=== PATIENT | female | born 1935 | race Caucasian/White ===

== ENCOUNTER → 2022-01-21 14:07 | Outpatient (BNVA) | payer MEDICARE, BC, SELFPAY | PROVIDERS: PCP Internal Medicine; Visit Provider Nurse Practitioner Family | DX: G20 Parkinson's disease (principal); M79.605 Pain in left leg; R29.6 Repeated falls | CPT/HCPCS: 99202 ==

== ENCOUNTER → 2022-05-02 14:14 | Outpatient (BNVA) | payer MEDICARE, BC, SELFPAY | PROVIDERS: PCP Internal Medicine; Visit Provider Nurse Practitioner Family | DX: G20 Parkinson's disease (principal); Z79.899 Other long term (current) drug therapy; Z91.81 History of falling | CPT/HCPCS: 99212 ==

== ENCOUNTER → 2022-08-24 14:32 | Outpatient (BNVA) | payer MEDICARE, BC, SELFPAY | PROVIDERS: PCP Internal Medicine; Visit Provider Nurse Practitioner Family | DX: G20 Parkinson's disease (principal); G47.62 Sleep related leg cramps; R13.10 Dysphagia, unspecified | CPT/HCPCS: 99212 ==

== ENCOUNTER 2023-02-14 14:46 | Outpatient (AMB) | payer MEDICARE, BC, SELFPAY ==
--- NOTE | 2023-02-14 14:57 | MHC.OFFVIS ---
Intake Vital Signs 02/14/23 14:59 BP 124/68 Blood Pressure Location Rt brachial Position Sitting Pulse 96 Pulse Source Pulse Oximeter Pulse Oximetry (%) 97 Oxygen Delivery Method Room Air Intake Visit Reasons: 6m follow up Parkinson-Confirmed Intake Note: Pt presents today for fup , had a fall Monday night. Pt did hit her head , she went to ED and vomited , all test came back negative . Allergies No Known Allergies Allergy (Verified 02/14/23 15:03) PFSH Medical History (Updated 02/14/23 @ 15:04 by Dayan Gamboa) Cataract Family History Father Diabetes Stroke Coronary aneurysm Mother No problems noted. Sister Macular changes, congenital Polio Pemphigus Shingles Social History Alcohol intake: former Patient Tobacco Use Status: Never used Tobacco Coding
[2023-02-14 14:59] VITALS: BP 124/68; PULSE 96; O2SAT 97
--- NOTE | 2023-02-14 15:35 | A.OFFVIS_ITS ---
Intake Vital Signs 02/14/23 14:59 BP 124/68 Blood Pressure Location Rt brachial Position Sitting Pulse 96 Pulse Source Pulse Oximeter Pulse Oximetry (%) 97 Oxygen Delivery Method Room Air Intake Visit Reasons: 6m follow up Parkinson-Confirmed Intake Note: Pt presents today for fup , had a fall Monday night. Pt did hit her head , she went to ED and vomited , all test came back negative . Allergies No Known Allergies Allergy (Verified 02/14/23 15:03) Medication List - Last Reconciled 02/14/23 by VIVIENNE Chadwick azelastine intranasal carbidopa-levodopa 25-100 mg 1 tab PO TID 30 days carbidopa-levodopa 25-100 mg ER 1 tab PO BEDTIME 28 days cyclosporine 0.05% (Restasis MultiDose) 0 drps ophthalmic (eye) cyclosporine 0.05% (Restasis) drps ophthalmic (eye) ONCE omeprazole 20 mg PO DAILY sertraline 25 mg PO DAILY trospium 20 mg PO DAILY PRN HPI HPI Comments History of Present Illness Details 87-yr-old female presents for f/u visit, accompanied by family. Pt's current PD medication regimen: CD-LD 1 tab tid and CD-LD ER 25-100mg 1 tab qhs Do medication effects last between doses: No ADL's: Needs assist. Swallowing: She is still having some issues w/ larger pills. Her voice was better but then it worsened after she stopped during her exercises. Still working w/ FISH STRINGER ASSEMBLER who thinks that she has had a slight regression with swallowing and her speech. Cough: Some Drooling: Some Orthostatic lightheadedness: None Constipation: No, more prone to diarrhea but this is a bit better. Freezing: None Stiffness: Legs feel stiff and back can feel sore. She still has leg cramps.. Tremor: None Falls: Last week- slid out of her recliner- family thinks this is d/t she was using a larger pillow to support her back- they plan to try a small lumbar pillow. Hallucinations: None Memory: Stable Sleep: Sleeps ok. Feels tired a lot. Exercise: Working w/ PT. [facility], [facility] Medical History (Updated 02/14/23 @ 15:04 by Dayan Gamboa) Cataract Family History Father Diabetes Stroke Coronary aneurysm Mother No problems noted. Sister Macular changes, congenital Polio Pemphigus Shingles Social History Alcohol intake: former Patient Tobacco Use Status: Never used Tobacco Review of Systems Const All systems reviewed & are unremarkable except as noted in HPI and below Physical Exam Vital Signs: Last Vital Signs Pulse 96 02/14/23 14:59 BP 124/68 02/14/23 14:59 Pulse Ox 97 02/14/23 14:59 Oxygen Delivery Method Room Air 02/14/23 14:59 Const General: cooperative and no acute distress Resp Effort & Inspection: normal respiratory effort and able to speak in complete sentences Neuro Other: Expression: Decreased expression and blink Voice: Soft voice Tremor: No rest tremor today Tone: Mild BUE tone Dyskinesia: None FFM: Mild bradykinesia Foot taps: Mild bradykinesia Gait: sitting upright in w/c. Psych: Pleasant affect General: patient oriented x3 Assessment & Plan Assessment & Plan (1) Parkinson's disease: Code(s): G20 - Parkinson's disease (2) Dysphagia: Code(s): R13.10 - Dysphagia, unspecified (3) Nocturnal leg cramps: Code(s): G47.62 - Sleep related leg cramps (4) Falls: Code(s): W19.XXXA - Unspecified fall, initial encounter Plan Increase Carbidopa-Levodopa 25-100mg from 1 tab Tid to 1.5 tabs at 7am, 1 tab at 11am, 1.5 tabs 4pm. Continue CD-LD Er 25-100mg qhs- in hopes this alleviates nocturnal leg cramps. Continue FISH STRINGER ASSEMBLER, PT and OT exercises. Concur w/ adjusting recliner pillows Monitor REM sleep behaviors- consider Melatonin and/or low-dose Clonazepam. f/u in 6 months or sooner prn new/worsening s/s. Medications: Changed From carbidopa-levodopa 25-100 mg at 7am, 11am, and 4pm, take before meals 1 tab PO TID 30 days 90 tabs 6RF To carbidopa-levodopa 25-100 mg 1.5 tabs at 7am, 1 tab at 11am, 1.5 tabs 4pm orally. take before meals 30 days 120 tabs 6RF Coding Level of Care Code Est Pt Level 4 (16169) Diagnoses Parkinson's disease G20 Dysphagia R13.10 Nocturnal leg cramps G47.62 Falls W19.XXXA
== END 2023-02-14 15:56 | disposition home or self-care (01) ==
PROVIDERS: Visit Provider Nurse Practitioner Family
DX: G20 Parkinson's disease (principal); R13.10 Dysphagia, unspecified; G47.62 Sleep related leg cramps; R29.6 Repeated falls
CPT/HCPCS: 99214

== ENCOUNTER → 2023-02-14 14:46 | Outpatient (BNVA) | payer MEDICARE, BC, SELFPAY | PROVIDERS: Visit Provider Nurse Practitioner Family | DX: G20 Parkinson's disease (principal); R13.10 Dysphagia, unspecified; G47.62 Sleep related leg cramps; R29.6 Repeated falls | CPT/HCPCS: 99212 ==

== ENCOUNTER 2023-08-15 14:35 | Outpatient (AMB) | payer MEDICARE, BC, SELFPAY ==
--- NOTE | 2023-08-15 14:57 | A.OFFVIS_ITS ---
Intake Vital Signs 08/15/23 15:00 Height 5 ft 1 in BP 122/80 Blood Pressure Location Rt brachial Position Sitting Pulse 82 Pulse Source Pulse Oximeter Pulse Oximetry (%) 98 Oxygen Delivery Method Room Air Intake Visit Reasons: 5m follow up Parkinson-CONF Intake Note: Patient presents for 5 month follow up.my eyes are watering and sometimes dry. Allergies No Known Allergies Allergy (Verified 08/15/23 15:03) Medication List - Last Reconciled 08/15/23 by VIVIENNE Chadwick azelastine intranasal carbidopa-levodopa 25-100 mg 1.5 tabs PO TID 28 days carbidopa-levodopa 25-100 mg ER 1 tab PO BEDTIME 28 days cyclosporine 0.05% (Restasis MultiDose) 0 drps ophthalmic (eye) cyclosporine 0.05% (Restasis) drps ophthalmic (eye) ONCE lifitegrast 5% (Xiidra) drps ophthalmic (eye) omeprazole 20 mg PO DAILY sertraline 25 mg PO DAILY trospium 20 mg PO DAILY PRN HPI HPI Comments History of Present Illness Details 87-yr-old female presents for f/u visit, accompanied by her niece Karina. Pt denies any significant interval medical history changes. Due to a pharmacy issue, pt never increased the CD-LD to 1.5-1-1.5 w/ CDLD ER qhs. Pt's current PD medication regimen: CD-LD 1 tab tid and CD-LD ER 25-100mg 1 tab qhs Do medication effects last between doses: No ADL's: Needs assist. Swallowing: Having some more issues. DATA WAREHOUSE MANAGER is considering doing a f/u MBS Eyes: States that one eye is watery and the other is dry- has been started on drops. Cough: Some Drooling: Some Orthostatic lightheadedness: None Constipation: Having constipation vs diarrhea- but PCP is helping to manage this. Pt is scheduled for GI consult in August. Freezing: None Stiffness: Legs feel stiff and back can feel sore. She still has leg cramps. Still is slow to stand. Tremor: None Falls: She did have a near fall- needed to be lowered to the floor. She did have a fall- as she was reaching for something on the ground. Gait: Can be slow to stand. Can walk w/ a walker and contact guard. Hallucinations: None Memory: Stable Sleep: Sleeps ok. No parasomnias.. Exercise: Working w/ PT. [facility] Medical History (Updated 09/03/23 @ 19:43 by VIVIENNE Chadwick) Parkinson's disease Cataract Family History Father Diabetes Stroke Coronary aneurysm Mother No problems noted. Sister Macular changes, congenital Polio Pemphigus Shingles Social History Alcohol intake: former Patient Tobacco Use Status: Never used Tobacco Review of Systems Const All systems reviewed & are unremarkable except as noted in HPI and below Physical Exam Vital Signs: Last Vital Signs Pulse 82 08/15/23 15:00 BP 122/80 08/15/23 15:00 Pulse Ox 98 08/15/23 15:00 Oxygen Delivery Method Room Air 08/15/23 15:00 Const General: cooperative and no acute distress Resp Effort & Inspection: normal respiratory effort and able to speak in complete sentences Neuro Other: General: patient oriented x3 Expression: Decreased expression and blink Voice: Hypophia Tremor: No tremor today Tone: Mild BUE tone Dyskinesia: None FFM: Bradykinesia, L > R Foot taps: Bradykinesia, L > R Gait: sitting upright in w/c. Psych: Pleasant affect Assessment & Plan Assessment & Plan (1) Parkinson's disease without dyskinesia: Code(s): G20.A1 - Parkinson's disease without dyskinesia, without mention of fluctuations (2) Dysphagia: Code(s): R13.10 - Dysphagia, unspecified (3) Nocturnal leg cramps: Code(s): G47.62 - Sleep related leg cramps Plan Increase Carbidopa-Levodopa 25-100mg from 1 tab Tid to 1.5 tabs TID at 7am, 11am, 4pm. Continue CD-LD Er 25-100mg qhs- in hopes this alleviates nocturnal leg cramps. Continue DATA WAREHOUSE MANAGER, PT and OT exercises. GI consult as scheduled. Monitor REM sleep behaviors- consider Melatonin and/or low-dose Clonazepam. ? f/u in 6 months or sooner prn new/worsening s/s. Medications: Changed From carbidopa-levodopa 25-100 mg at 7am, 11am, 4pm 1.5 tabs PO TID 28 days 126 tabs 6RF To carbidopa-levodopa 25-100 mg at 7am, 11am, 4pm 1.5 tabs PO TID 126 tabs 6RF 28 days From carbidopa-levodopa 25-100 mg 1.5 tabs at 7am, 1 tab at 11am, 1.5 tabs 4pm orally. take before meals 30 days 120 tabs 6RF To carbidopa-levodopa 25-100 mg at 7am, 11am, 4pm 1.5 tabs PO TID 126 tabs 6RF 28 days From carbidopa-levodopa 25-100 mg at 7am, 11am, 4pm 1.5 tabs PO TID 28 days 126 tabs 6RF To carbidopa-levodopa 25-100 mg at 7am, 11am, 4pm 1.5 tabs PO TID 126 tabs 6RF 28 days Coding Level of Care Code Est Pt Level 4 (29013) Diagnoses Parkinson's disease without dyskinesia G20.A1 Dysphagia R13.10 Nocturnal leg cramps G47.62
[2023-08-15 15:00] VITALS: BP 122/80; PULSE 82; O2SAT 98
== END 2023-08-15 16:00 | disposition home or self-care (01) ==
LOC: HO.HSMS 14:35
PROVIDERS: PCP Internal Medicine; Visit Provider Nurse Practitioner Family
DX: G20.A1 Parkinson's disease without dyskinesia, without mention of fluctuations (principal); R13.10 Dysphagia, unspecified; G47.62 Sleep related leg cramps
CPT/HCPCS: 99214

== ENCOUNTER → 2023-08-15 14:35 | Outpatient (BNVA) | payer MEDICARE, BC, SELFPAY | PROVIDERS: PCP Internal Medicine; Visit Provider Nurse Practitioner Family | DX: G20.A1 Parkinson's disease without dyskinesia, without mention of fluctuations (principal); G47.62 Sleep related leg cramps; R13.10 Dysphagia, unspecified | CPT/HCPCS: 99212 ==

== ENCOUNTER 2024-09-16 10:44 | Outpatient (AMB) | payer MEDICARE, BC, SELFPAY ==
--- NOTE | 2024-09-16 11:01 | A.OFFVIS_ITS ---
Vital Signs 09/16/24 11:06 BP 130/70 Blood Pressure Location Lt brachial Position Sitting Pulse 76 Pulse Source Pulse Oximeter Pulse Oximetry (%) 96 Oxygen Delivery Method Room Air Intake Visit Reasons: 6 mo f/u Intake Note: Patient presents for med adjustment carbidopa-levodopa. Barrel Rib Matting Machine Operator Required: No Accompanied by: Self / Same As Patient Allergies No Known Allergies Allergy (Verified 08/15/23 15:03) Medication List - Last Reconciled 09/16/24 by VIVIENNE Chadwick azelastine intranasal carbidopa-levodopa 25-100 mg 2 tabs PO TID 28 days carbidopa-levodopa 50-200 mg ER 1 tab PO BEDTIME 28 days cyclosporine 0.05% (Restasis MultiDose) 0 drps ophthalmic (eye) cyclosporine 0.05% (Restasis) drps ophthalmic (eye) ONCE lifitegrast 5% (Xiidra) drps ophthalmic (eye) omeprazole 20 mg PO DAILY sertraline 25 mg PO DAILY trospium 20 mg PO DAILY PRN HPI Comments Details: 88-yr-old female presents for f/u visit, accompanied by her niece Karina. Pt is currently staying at [facility] for rehab s/p a mechanical fall approx 1 month ago- in which she sustained mx rib fx's- pt was being assisted w/ toileting- while standing, lost her balance and fell into the wall. Was admitted to [facility]- tx'd conservatively- was on oxycodone w/ APAP/Ibuprofen. Pt continues on prn analgesics- pt thinks she is still taking prn oxycodone- the niece thought she was not any longer.. Pt's niece is hoping to bring her back to her [facility], [place], however we will need to higher primary duty aids.. She is still having back and rib pain- though niece feels it is improving. Pt's niece believes she did increase the CD-LD after the last visit. However, knees feels that patient's PD symptoms have progressed since this recent fall. Pt's current PD medication regimen: CD-LD 1.5 tab tid and CD-LD ER 25-100mg 1 tab qhs Do medication effects last between doses: No ADL's: Needs assist. Swallowing: States her swallowing has be . Had f/u MBS- she was noted to be pocketing food- was advised to chew more thoroughly before swallowing, eat more slowly, avoid straws. Has needed to have dental work d/t cavities likely r/t pocketing of foood. In the rehab- she is now eating al meals in the dining room. Eyes: Continues to have dry eye- her sorter packer did a procedure to improve dry eyes. She is on prescription dry eyes. Cough: Occasional strange cough not r/t eating- family attributes to allergies. Drooling: Increased since this recent fall. Orthostatic lightheadedness: None Constipation: Denies constipation, but is having loose stools- has seen GI who felt her bowel regimen did not need to be adjusted. Freezing: Some- then can start to list to the side. Stiffness: Seems more rigid. Legs can be sore nad achy- walking more w/ PT. Still has leg cramps- but states bananas help this. States she used toe at a banana daily at the [facility] but not at rehab. Tremor: None Falls: as above Gait: Can be slow to stand. Can walk w/ a walker and contact guard and w/c following. Hallucinations: Pt denies. Niece states that while at [facility]- slipped out of bed, as she thought her was calling for her. Had another episode where pt thought there was 2-3 roommates but she was in a private room. Memory: Sometimes mis-speaks but tehn corrects herself. Sleep: Sleeps ok. No parasomnias. Exercise: Working w/ PT. [facility] Medical History (Updated 09/16/24 @ 12:13 by VIVIENNE Chadwick) Parkinson's disease Cataract Family History Father Diabetes Stroke Coronary aneurysm Mother No problems noted. Sister Macular changes, congenital Polio Pemphigus Shingles Social History Alcohol intake: former Patient Tobacco Use Status: Never used Tobacco Physical Exam Vital Signs: Last Vital Signs Pulse 76 09/16/24 11:06 BP 130/70 09/16/24 11:06 Pulse Ox 96 09/16/24 11:06 Oxygen Delivery Method Room Air 04/28/25 11:06 Const General: cooperative and no acute distress Resp Effort & Inspection: normal respiratory effort and able to speak in complete sentences Neuro Other: General: patient oriented x3 Expression: Marked decreased expression and blink Voice: Hypophia Drooling- mild drooling Tremor: No tremor today Tone: Moderate BUE, R > L, tone Dyskinesia: None FFM: More pronounced bradykinesia- more difficulty completing movements today Foot taps: Marked bradykinesia- difficulty initiating/completing tasks Gait: sitting upright in w/c, more stooped in shoulders. Psych: Pleasant affect Assessment & Plan Assessment & Plan (1) Parkinson's disease without dyskinesia: Code(s): G20.A1 - Parkinson's disease without dyskinesia, without mention of fluctuations Category: Medical Qualifiers: Fluctuating manifestations: without fluctuating manifestations Qualified Code(s): G20.A1 - Parkinson's disease without dyskinesia, without ment ion of fluctuations (2) Dysphagia: Code(s): R13.10 - Dysphagia, unspecified Category: Medical Qualifiers: Dysphagia type: oral phase Qualified Code(s): R13.11 - Dysphagia, oral phase (3) Nocturnal leg cramps: Code(s): G47.62 - Sleep related leg cramps Category: Medical Plan Will optimize CD-LD dosing in hopes of reducing bradykinesia, rigidity, and nocturnal leg cramps. Advised of possible side effects to monitor for with increasing levodopa dose, such as orthostatic hypotension, lightheadedness, hallucinations, dyskinesias, GI upset. Increase Carbidopa-Levodopa 25-100mg from 1.5 tabs TID at 7am, 11am, 4pm to 2 tabs TID- at least 30-45 minutes before meals. Increase CD-LD Er 25-100mg from 1 tab qhs to CD-LD ER 50-200mg 1 tab daily at bedtime. * Orders updated today, however we will send orders to [facility] once patient plans to return back to assisted living facility. Niece will let us know. Continue safe swallowing strategies- concur with eating all meals in the dining room, eating slowly, avoiding straws. Continue bowel regimen- per GI. Continue PT. Monitor REM sleep behaviors- consider Melatonin and/or low-dose Clonazepam. ? f/u in 4 months with myself or Dr. Parrish- or sooner prn new/worsening s/s. Medications: New carbidopa-levodopa 50-200 mg ER at 8pm (continue carbidopa levodopa IR dose TID) 1 tab PO BEDTIME 28 days 28 tabs 6RF Changed From carbidopa-levodopa 25-100 mg at 7am, 11am, 4pm. (Continue CD-LD ER 25-100mg q 8pm) 1.5 tabs PO TID 28 days 126 tabs 6RF To carbidopa-levodopa 25-100 mg at 7am, 11am, 4pm. (Continue CD-LD ER dose q 8pm) 2 tabs PO TID 28 days 168 tabs 6RF Discontinued carbidopa-levodopa 25-100 mg ER Discontinued Reason: Doctor's Order 1 tab PO BEDTIME 28 days 28 tabs 6RF Coding Level of Care Code Est Pt Level 4 (02314) Complex EM visit Add On G2211 Diagnoses Parkinson's disease without dyskinesia or fluctuating manifestations G20.A1 Fluctuating manifestations: without fluctuating manifestations Oral phase dysphagia R13.11 Dysphagia type: oral phase Nocturnal leg cramps G47.62
[2024-09-16 11:06] VITALS: BP 130/70; PULSE 76; O2SAT 96
--- OUTSIDE RECORDS SUMMARY | 2024-09-16 12:46 | XMS_ITS ---
Author Organization [facility] Address [address] [place] [address] Care Team Providers Care Structural Mill Supervisor Name Role Phone Lara Leahy MD Primary Care Provider Unavailab JOSAFAT Smith Unavailable Migration, Provider Unavailable Unavailable [facility]IS[facility] Encounter Medications Medication SIG (Take, Route, Frequency, Duration) Notes Start Date End Date Status Claritin 10 MG 1 tab(s) orally once a day Active BETAMETHASONE *Please review for potential replacement for e-prescription and drug interaction check* Active Biotin 300 MCG 1 TAB(S) ORALLY ONCE A DAY for 30 DAY(S) *Please review and pick correct strength-formulat ion from Medispan options. If intended option is not shown, discontinue and re-order from Quick Search* Active Sertraline HCl 100 MG 1 tab(s) orally once a day for 30 day(s) Active TRIAMCINOLONE ACETONIDE 40 MG/ML DIRECTED INTRAMUSCULARLY ONCE for 1 DOSE(S) *Please review for potential replacement for e-prescription and drug interaction check* Active B-12 1000 MCG 1 tab(s) orally once a day for 30 day(s) Active Calcium 300/150 *Please review and pick correct strength-formulat ion from Medispan options. If intended option is not shown, discontinue and re-order from Quick Search* Active Trospium Chloride 20 MG 1 tab(s) orally 2 times a day for 30 day(s) 02/21/2020 Active Encounters Encounter Location Date Provider Diagnosis [facility] [address] [place] [address] 07/27/2024 Provider Migration Plan Of Treatment No Information Progress Notes * Alexa JACKSON JDOB:1935 (88 yo F)Acc No.[id number]:07/27/2024 Patient:Alexa JOHNSON Provider:?Provider Migration :1935???Age:88 Y???Sex:Female D ate:07/27/2024 Address:[address] [place] [address], [id number] Pcp:Lara Leahy MD Subjective: * Chief Complaints: * ???1. [facility] To [facility] Con version Encounter. * Medical History:? * Medications:?Taking Trospium Chloride 20 MG Tablet 1 tab(s) orally 2 times a day , Taking B-12 1000 MCG Tablet 1 tab(s) orally once a day , Taking Calcium 300/150 , Notes to Pharmacist: *Please review and pick correct strength-formulation from Clickatellan options. If intended option is not shown, discontinue and re-order from Quick Search*, Taking Sertraline HCl 100 MG Tablet 1 tab(s) orally once a day , Taking TRIAMCINOLONE ACETONIDE 40 MG/ML SUSPENSION DIRECTED INTRAMUSCULARLY ONCE , Notes to Pharmacist: *Please review for potential replacement for e-prescription and drug interaction check*, Taking BETAMETHASONE , Notes to Pharmacist: *Please review for potential replacement for e-prescription and drug interaction check*, Taking Biotin 300 MCG TABLET 1 TAB(S) ORALLY ONCE A DAY , Notes to Pharmacist: *Please review and pick correct strength-formulation from Clickatellan options. If intended option is not shown, discontinue and re-order from Quick Search*, Taking Claritin 10 MG Tablet 1 tab(s) orally once a day Objective: * Vitals:? Assessment: Plan: * Treatment: * Images: Billing Information: * Visit Code:? * Procedure Codes:? * Electronic signature of Prov ider Migration on 09/16/2024 at 12:45 PM EDT Sign off status: Pending * Provider:?Provider Migration Date:?07/27 Generated for Maddie montiel/Marcus/Morena on:?09/16/2024 12:45 PM EDT
--- OUTSIDE RECORDS SUMMARY | 2024-09-16 12:46 | XMS_ITS | Patient Health Record ---
Author Organization [facility] Address [address] [place] [address] Care Team Providers Care Machinery Dismantler Name Role Phone Lara Leahy MD Primary Care Provider Unavailab JOSAFAT Smith Unavailable Migration, Provider Unavailable Unavailable Reason For Referral No Information Medications Medication SIG (Take, Route, Frequency, Duration) Notes Start Date End Date Status Claritin 10 MG 1 tab(s) orally once a day Active BETAMETHASONE *Please review for potential replacement for e-prescription and drug interaction check* Active Biotin 300 MCG 1 TAB(S) ORALLY ONCE A DAY for 30 DAY(S) *Please review and pick correct strength-formulat ion from PublicRelayan options. If intended option is not shown, [...] review and pick correct strength-formulat ion from PublicRelayan options. If intended option is not shown, discontinue and re-order from Quick Search* Active Trospium Chloride 20 MG 1 tab(s) orally 2 times a day for 30 day(s) 02/21/2020 Active Social History Tobacco Use: Social History Observation Description Date Details (start date - stop date) Never Smoker NA - NA Smoking MU Question Answer Notes Are you a: nonsmoker Alcohol MU Question Answer Notes Interpretation Negative Problems Problem Type SNOMED Code ICD Code Onset Dates Problem Status W/U Status Risk Notes Problem Overactive bladder (616329445) Overactive bladder (N32.81) Active confirmed Problem Nocturia (261242451) Nocturia (R35.1) Active confirmed Encounters Encounter Location Date Provider Diagnosis [facility] [address] [place] [address] 07/27/2024 Provider Migration Plan Of Treatment No Information Insurance Providers Payer Name Payer Address Payer Phone Subscriber Number Group Number Insured Name Patient Relationship to Insured Coverage Start Date Coverage End Date MEDICARE [address] [place] [phone] [id number] Alexa Jackson Self - patient is the insured [place] - [employer] [address] [place] [address] [id number] Alexa Jackson Self - patient is the insured Medical (General) History Surgical History Surgery Date(Month/Year)
== END 2024-09-16 11:56 | disposition home or self-care (01) ==
LOC: HO.HSMS 10:44
PROVIDERS: PCP Internal Medicine; Visit Provider Nurse Practitioner Family
DX: G20.A1 Parkinson's disease without dyskinesia, without mention of fluctuations (principal); R13.11 Dysphagia, oral phase; G47.62 Sleep related leg cramps
CPT/HCPCS: 99214; G2211

== ENCOUNTER → 2024-09-16 10:44 | Outpatient (BNVA) | payer MEDICARE, BC, SELFPAY | PROVIDERS: PCP Internal Medicine; Visit Provider Nurse Practitioner Family | DX: G20.A1 Parkinson's disease without dyskinesia, without mention of fluctuations (principal); G47.62 Sleep related leg cramps; R13.11 Dysphagia, oral phase | CPT/HCPCS: 99212 ==

== ENCOUNTER 2025-04-22 10:48 | Outpatient (AMB) | payer MEDICARE, BC, SELFPAY ==
--- NOTE | 2025-04-22 11:01 | A.OFFVIS_ITS ---
Vital Signs 04/22/25 11:11 BP 100/60 Blood Pressure Location Rt brachial Position Sitting Pulse 86 Pulse Source Pulse Oximeter Pulse Oximetry (%) 98 Oxygen Delivery Method Room Air Intake Visit Reasons: f/u appt Intake Note: Patient presents for med adjustment carbidopa-levodopa. Supervisor [employer] Required: No Accompanied by: Daughter Allergies No Known Allergies Allergy (Verified 04/22/25 11:01) Medication List - Last Reconciled 04/22/25 by VIVIENNE Chadwick azelastine intranasal carbidopa-levodopa 25-100 mg 2 tabs PO TID 28 days carbidopa-levodopa 50-200 mg ER 1 tab PO BEDTIME 28 days cyclosporine 0.05% (Restasis MultiDose) 0 drps ophthalmic (eye) cyclosporine 0.05% (Restasis) drps ophthalmic (eye) ONCE lifitegrast 5% (Xiidra) drps ophthalmic (eye) omeprazole 20 mg PO DAILY sertraline 25 mg PO DAILY trospium 20 mg PO DAILY PRN HPI Comments Details: 88-yr-old female presents for f/u visit, accompanied by her niece Karina. She has had 2 recent falls- one 6 weeks ago, in which she sustained left 5th toe fracture. the other occurred the other day- and sustained a right duong skin tear. Both of these were triggered by her reaching from the w/c. She states she just reaches for anything that she may need. Her niece did purchase a w/c which can recline, however this had helped. She has a transport coordinator, but does not use it. She has home PT/OT/[employer] and NSG when needed- niece is unsure if the nurse is aware of the right duong wound. Pt is currently living at [facility], however they are looking for LTC placement. Pt's niece believes she did increase the CD-LD after the last visit. However, knees feels that patient's PD symptoms have progressed since this recent fall. Pt's current PD medication regimen: CD-LD 1.5 tab tid and CD-LD ER 25-100mg 1 tab qhs Do medication effects last between doses: No ADL's: Needs assist. Swallowing: States her swallowing has been better. Using a new dysphagia Limited Slow Flow Dysphagia Regulating Drinking Cup- recommended by [employer]- which has been helpful. Due to have a f/u MBS- the previous MBS had shown she was pocketing food. Niece notes she has had 3 teeth extracted in the last year. Eyes: Stable dry eye- her medical assembler did a procedure to improve dry eyes. She is on prescription dry eyes. Cough: Occasional strange cough not r/t eating- family attributes to allergies. Drooling: Decreased, now rarely Orthostatic lightheadedness: None Constipation: Denies constipation. Was having loose stools but has improved to soft formed stool. Has had GI consult- who felt her bowel regimen did not need to be adjusted. Freezing: Some- then can start to list to the side. Stiffness: Stable rigidity. Still has leg cramps, daytime and nocturnal- now eating a banana QOD- and the cramps are better on the day that she eats the banana. Tremor: None Falls: as above Gait: Balance is worsening- now doing more stand-pivot then actual walking. Not walking as much, as the [facility] staff can not use a gait belt. Hallucinations: May see little things - not bothersome Memory: Sometimes mis-speaks but then corrects herself. Sleep: Sleeps ok. No parasomnias. Exercise: Working w/ PT. [facility] Medical History (Updated 09/16/24 @ 12:13 by VIVIENNE Chadwick) Parkinson's disease Cataract Family History Father Diabetes Stroke Coronary aneurysm Mother No problems noted. Sister Macular changes, congenital Polio Pemphigus Shingles Social History Alcohol intake: former Patient Tobacco Use Status: Never used Tobacco Physical Exam Vital Signs: Last Vital Signs Pulse 86 04/22/25 11:11 BP 100/60 04/22/25 11:11 Pulse Ox 98 04/22/25 11:11 Oxygen Delivery Method Room Air 04/22/25 11:11 Const General: cooperative and no acute distress Resp Effort & Inspection: normal respiratory effort and able to speak in complete sentences Neuro Other: General: patient oriented x3 Expression: Marked decreased expression and blink Voice: Hypophia Drooling- none Tremor: No tremor today Tone: Moderate BUE, R > L, tone Dyskinesia: None FFM: More pronounced bradykinesia Foot taps: Marked bradykinesia Gait: sitting upright in w/c, Psych: Pleasant affect Assessment & Plan Assessment & Plan (1) Parkinson's disease without dyskinesia: Code(s): G20.A1 - Parkinson's disease without dyskinesia, without mention of fluctuations Category: Medical Qualifiers: Fluctuating manifestations: without fluctuating manifestations Qualified Code(s): G20.A1 - Parkinson's disease without dyskinesia, without mention of fluctuations (2) Dysphagia: Code(s): R13.10 - Dysphagia, unspecified Category: Medical Qualifiers: Dysphagia type: oral phase Qualified Code(s): R13.11 - Dysphagia, oral phase (3) Nocturnal leg cramps: Code(s): G47.62 - Sleep related leg cramps Category: Medical Plan Will optimize CD-LD regimen by adjusting form CD-LD IR/ER tabs to CD-LD ER caps (Crexont)- again in hopes of reducing bradykinesia, rigidity, and nocturnal leg cramps. Advised of possible side effects to monitor for with increasing levodopa dose, such as orthostatic hypotension, lightheadedness, hallucinations, dyskinesia, GI upset. Discontinue Carbidopa-Levodopa 25-100mg from 1.5 tabs TID at 7am, 11am, 4pm to 2 tabs TID Discontinue CD-LD Er 25-100mg from 1 tab qhs to CD-LD ER 50-200mg 1 tab daily at bedtime. Start Crexont (CD-LD ER cap) 52.5-210mg: Take 2 caps (105-420mg) 4 times per day. Continue safe swallowing strategies- concur with eating all meals in the dining room, eating slowly, avoiding straws. Continue bowel regimen- per GI. Continue PT. Niece will f/u w/ pt's [employer]URSING nurse and home PT to ensure NSG can assist with LE wound care. Monitor REM sleep behaviors- consider Melatonin and/or low-dose Clonazepam. Previous PD med trials: CD-LD IR and CD-LD ER- ineffective as evidenced by bradykinesia and increasing doses a/w hallucinations. ? f/u in 4-6 months with myself or Dr. Parrish- or sooner prn new/worsening s/s. Medications: New carbidopa-levodopa 52.5-210 mg ER (Crexont) 2 caps (2 x 52.5-210 mg) PO QID 240 ea 6RF 30 days G20.A1 - Parkinson's disease without dyskinesia, without mention of fluctuations Coding Level of Care Code Est Pt Level 4 (25689) Diagnoses Parkinson's disease without dyskinesia or fluctuating manifestations G20.A1 Fluctuating manifestations: without fluctuating manifestations Oral phase dysphagia R13.11 Dysphagia type: oral phase Nocturnal leg cramps G47.62
[2025-04-22 11:11] VITALS: BP 100/60; PULSE 86; O2SAT 98
== END 2025-04-22 12:06 | disposition home or self-care (01) ==
LOC: HO.HSMS 10:49
PROVIDERS: PCP Internal Medicine; Visit Provider Nurse Practitioner Family
DX: G20.A1 Parkinson's disease without dyskinesia, without mention of fluctuations (principal); R13.11 Dysphagia, oral phase; G47.62 Sleep related leg cramps
CPT/HCPCS: 99214

== ENCOUNTER → 2025-04-22 10:48 | Outpatient (BNVA) | payer MEDICARE, BC, SELFPAY | PROVIDERS: PCP Internal Medicine; Visit Provider Nurse Practitioner Family | DX: G20.A1 Parkinson's disease without dyskinesia, without mention of fluctuations (principal); R13.11 Dysphagia, oral phase; G47.62 Sleep related leg cramps | CPT/HCPCS: 99212 ==